=== PATIENT | male | born 1985 | race African-American/Black ===

== ENCOUNTER 2016-10-05 12:20 | Inpatient (IN) | payer SELFPAY ==
[~2016-10-05] VITALS: Ht 188 cm; Wt 76.0 kg
--- NOTE | 2016-10-05 13:46 | PHYS DOC ---
Past Medical History Past Medical History: Asthma Past Surgical History: Other Additional Past Surgical Histo: right second toe amputation Alcohol Use: None Drug Use: None Adult General Chief Complaint Chief Complaint: HAND PROBLEM HPI HPI Patient is a 31 year old male presents to the emergency department is complaining of right hand pain and discomfort. Patient states he was bit by something last Wednesday. He was seen by urgent care as well as [facility] and been placed on 2 different antibiotics. Patient states the area does not improve. He states that the hand is swollen red warm and tender. He denies fever, chills or any nausea vomiting. Patient states his tetanus immunization is up-to-date. Review of Systems Review of Systems Constitutional: Denies fever or chills [] Eyes: Denies change in visual acuity, redness, or eye pain [] HENT: Denies nasal congestion or sore throat [] Respiratory: Denies cough or shortness of breath [] Cardiovascular: No additional information not addressed in HPI [] GI: Denies abdominal pain, nausea, vomiting, bloody stools or diarrhea [] : Denies dysuria or hematuria [] Musculoskeletal: Denies back pain. Right hand pain and discomfort with swelling Integument: Denies rash or skin lesions [] Neurologic: Denies headache, focal weakness or sensory changes [] Endocrine: Denies polyuria or polydipsia [] Allergies Allergies Allergies Coded Allergies Type Severity Reaction Last Updated Verified No Known Drug Allergies 11/09/14 No Physical Exam Physical Exam Constitutional: Well developed, well nourished, no acute distress, non-toxic appearance. [] HENT: Normocephalic, atraumatic, bilateral external ears normal, oropharynx moist, no oral exudates, nose normal. [] Eyes: PERRLA, EOMI, conjunctiva normal, no discharge. [] Neck: Normal range of motion, no tenderness, supple, no stridor. [] Cardiovascular:Heart rate regular rhythm, no murmur [] Lungs & Thorax: Bilateral breath sounds clear to auscultation [] Abdomen: Bowel sounds normal, soft, no tenderness, no masses, no pulsatile masses. [] Skin: Warm, dry, no erythema, no rash. Right hand with 2 puncture hurst noted on the lateral part. Right hand appears to be very red warm and tender with drainage noted coming from the area. Back: No tenderness] Extremities: No tenderness, no cyanosis, no clubbing, ROM intact, no edema. [] Neurologic: Alert and oriented X 3, normal motor function, normal sensory function, no focal deficits noted. [] Psychologic: Affect normal, judgement normal, mood normal. [] Current Patient Data Vital Signs Vital Signs Date Time Temp Pulse Resp B/P (MAP) Pulse Ox O2 Delivery O2 Flow Rate FiO2 10/05/16 13:33 99.2 68 18 128/70 (89) 98 Room Air 99.2 EKG EKG [] Radiology/Procedures Radiology/Procedures [] Course & Med Decision Making Course & Med Decision Making Pertinent Labs and Imaging studies reviewed. (See chart for details) Spoke with Dr. Rosas in regards to patient being admitted into the hospital. He recommends having infectious disease consult to. Patient will be placed on clindamycin. X-rays pending at this time CBC CMP and blood cultures pending as well. Patient is aware of the admission. [] Dragon Disclaimer Dragon Disclaimer This electronic medical record was generated, in whole or in part, using a voice recognition dictation system. Departure Departure Impression: Primary Impression: Cellulitis of right hand Disposition: ADMITTED INPATIENT Admitting Physician: Belinda Rosas Condition: STABLE Referrals: NO PCP (PCP) JAC CONNOLLY APRN Oct 05, 2016 13:46
[2016-10-05 13:52] LABS: BASO % 0 % (0-3); EOS % 2 % (0-3); HEMATOCRIT 41.5 % (39.0-53.0); LYMPH # 1.4 x10^3/uL (1.0-4.8); LYMPH % 13 % (24-48); MEAN CORPUSCULAR HEMOGLOBIN 30 pg (25-35); MEAN CORPUSCULAR HGB CONC 34 g/dL (31-37); MEAN CORPUSCULAR VOLUME 88 fL (79-100); MONO % 7 % (0-9); NEUT % 77 % (31-73); PLATELET COUNT 237 x10^3/uL (140-400); RED BLOOD COUNT 4.69 x10^6/uL (4.30-5.70); RED CELL DISTRIBUTION WIDTH 14.2 % (11.5-14.5); WHITE BLOOD COUNT 10.2 x10^3/uL (4.0-11.0)
[2016-10-05] MEDS ORDERED: ONDANSETRON ODT 4 MG TAB.RAPDIS. PO PRN (14:00)
[2016-10-05] MEDS ORDERED: CLINDAMYCIN 600MG PREMIX 50 ML IV SCH (14:00)
[2016-10-05] MEDS ORDERED: HYDROcodone/APAP 5/325MG 1 TAB TABLET PO PRN (14:00)
[2016-10-05 14:04] LABS: CALCIUM 9.3 mg/dL (8.5-10.1); CREATININE 0.8 mg/dL (0.7-1.3); GFR 135.6
[2016-10-05 14:10] LABS: ALBUMIN/GLOBULIN RATIO 0.8 (1.0-1.7); TOTAL BILIRUBIN 0.9 mg/dL (0.2-1.0)
[2016-10-05 14:11] LABS: POTASSIUM 5.9 mmol/L (3.5-5.1)
--- NOTE | 2016-10-05 14:12 | RAD ---
Indication swelling. AP oblique and lateral views of the right hand were obtained. There is soft tissue swelling over the ulnar side of the hand as well as dorsally. A bony abnormality is not seen.
[2016-10-05 15:27] VITALS: BP 114/66
[2016-10-05 15:41] VITALS: BP 114/66
--- NOTE | 2016-10-05 18:44 | PDOC1 ---
History and Physical Date of Admission Date of Admission DATE: 10/05/16 TIME: 18:41 Identification/Chief Complaint Chief Complaint L foot ulcer (not diabetic) Problems: History of Present Illness History of Present Illness Middle aged male presented to ER with what looks like a diadetic foot ulcer, but he is not diabetic. (A1C 5.8,,Glucose today is 92) He saw Dr Coleman this am. I dw ER Doc Pt seen and examined Plan is admit with IV antibx and consult I.D. Total time 31 minutes Current Problem List Problem List Problems Medical Problems: (1) Cellulitis of right hand Status: Acute Problems: Current Medications Current Medications Current Medications Clindamycin Phosphate 50 ml @ 100 mls/hr Q8HRS IV Last administered on 14:04; Start 10/05/16 at 14:00 Acetaminophen/ Hydrocodone Bitart (Lortab 5/325) 2 tab PRN Q6HRS PRN PO pain Last administered on 10/05/16 15:47; Start 10/05/16 at 14:00 Ondansetron HCl (Zofran Odt) 4 mg PRN Q8HRS PRN PO nausea and vomiting; Start 10/05/16 at 14:00 Allergies Allergies: Coded Allergies: No Known Drug Allergies (Unverified , 11/09/14) Vitals Vitals Vital Signs Date Time Temp Pulse Resp B/P (MAP) Pulse Ox O2 Delivery O2 Flow Rate FiO2 10/05/16 15:47 Room Air 10/05/16 15:41 98.6 62 18 114/66 (82) 99 98.6 Labs Labs Laboratory Tests Test 10/05/16 13:40 White Blood Count 10.2 x10^3/uL (4.0-11.0) Red Blood Count 4.69 x10^6/uL (4.30-5.70) Hemoglobin 14.0 g/dL (13.0-17.5) Hematocrit 41.5 % (39.0-53.0) Mean Corpuscular Volume 88 fL (79-100) Mean Corpuscular Hemoglobin 30 pg (25-35) Mean Corpuscular Hemoglobin Concent 34 g/dL (31-37) Red Cell Distribution Width 14.2 % (11.5-14.5) Platelet Count 237 x10^3/uL (140-400) Neutrophils (%) (Auto) 77 % (31-73) Lymphocytes (%) (Auto) 13 % (24-48) Monocytes (%) (Auto) 7 % (0-9) Eosinophils (%) (Auto) 2 % (0-3) Basophils (%) (Auto) 0 % (0-3) Neutrophils # (Auto) 7.8 x10^3uL (1.8-7.7) Lymphocytes # (Auto) 1.4 x10^3/uL (1.0-4.8) Monocytes # (Auto) 0.7 x10^3/uL (0.0-1.1) Eosinophils # (Auto) 0.2 x10^3/uL (0.0-0.7) Basophils # (Auto) 0.0 x10^3/uL (0.0-0.2) Sodium Level 137 mmol/L (136-145) Potassium Level 5.9 mmol/L (3.5-5.1) Chloride Level 102 mmol/L (98-107) Carbon Dioxide Level 28 mmol/L (21-32) Anion Gap 7 (6-14) Blood Urea Nitrogen 9 mg/dL (8-26) Creatinine 0.8 mg/dL (0.7-1.3) Estimated GFR (Cockcroft-Gault) 135.6 BUN/Creatinine Ratio 11 (6-20) Glucose Level 76 mg/dL (70-99) Calcium Level 9.3 mg/dL (8.5-10.1) Total Bilirubin 0.9 mg/dL (0.2-1.0) Aspartate Amino Transf (AST/SGOT) 43 U/L (15-37) Alanine Aminotransferase (ALT/SGPT) 16 U/L (16-63) Alkaline Phosphatase 46 U/L (46-116) Total Protein 9.0 g/dL (6.4-8.2) Albumin 4.0 g/dL (3.4-5.0) Albumin/Globulin Ratio 0.8 (1.0-1.7) Laboratory Tests Test 10/05/16 13:40 White Blood Count 10.2 x10^3/uL (4.0-11.0) Red Blood Count 4.69 x10^6/uL (4.30-5.70) Hemoglobin 14.0 g/dL (13.0-17.5) Hematocrit 41.5 % (39.0-53.0) Mean Corpuscular Volume 88 fL (79-100) Mean Corpuscular Hemoglobin 30 pg (25-35) Mean Corpuscular Hemoglobin Concent 34 g/dL (31-37) Red Cell Distribution Width 14.2 % (11.5-14.5) Platelet Count 237 x10^3/uL (140-400) Neutrophils (%) (Auto) 77 % (31-73) Lymphocytes (%) (Auto) 13 % (24-48) Monocytes (%) (Auto) 7 % (0-9) Eosinophils (%) (Auto) 2 % (0-3) Basophils (%) (Auto) 0 % (0-3) Neutrophils # (Auto) 7.8 x10^3uL (1.8-7.7) Lymphocytes # (Auto) 1.4 x10^3/uL (1.0-4.8) Monocytes # (Auto) 0.7 x10^3/uL (0.0-1.1) Eosinophils # (Auto) 0.2 x10^3/uL (0.0-0.7) Basophils # (Auto) 0.0 x10^3/uL (0.0-0.2) Sodium Level 137 mmol/L (136-145) Potassium Level 5.9 mmol/L (3.5-5.1) Chloride Level 102 mmol/L (98-107) Carbon Dioxide Level 28 mmol/L (21-32) Anion Gap 7 (6-14) Blood Urea Nitrogen 9 mg/dL (8-26) Creatinine 0.8 mg/dL (0.7-1.3) Estimated GFR (Cockcroft-Gault) 135.6 BUN/Creatinine Ratio 11 (6-20) Glucose Level 76 mg/dL (70-99) Calcium Level 9.3 mg/dL (8.5-10.1) Total Bilirubin 0.9 mg/dL (0.2-1.0) Aspartate Amino Transf (AST/SGOT) 43 U/L (15-37) Alanine Aminotransferase (ALT/SGPT) 16 U/L (16-63) Alkaline Phosphatase 46 U/L (46-116) Total Protein 9.0 g/dL (6.4-8.2) Albumin 4.0 g/dL (3.4-5.0) Albumin/Globulin Ratio 0.8 (1.0-1.7) VTE Prophylaxis Ordered VTE Prophylaxis Devices: Yes VTE Pharmacological Prophylaxi: Yes MIN SHEN III, DO Oct 05, 2016 18:44
[2016-10-05 19:00] VITALS: BP 106/67
--- NOTE | 2016-10-05 19:03 | PDOC1 ---
History and Physical Date of Admission Date of Admission DATE: 10/05/16 TIME: 19:00 History of Present Illness History of Present Illness Middle aged AA male has a hand Infection with( ? insect bite) He has been to urgent care and then to ER with po antibx and Incision and drainage. DW Er doc. Plan is admit with ID consult and IV antibx Pt seen and examined Current Problem List Problem List Problems Medical Problems: (1) Cellulitis of right hand Status: Acute Problems: Current Medications Current Medications Current Medications Clindamycin Phosphate 50 ml @ 100 mls/hr Q8HRS IV Last administered on 14:04; Start 10/05/16 at 14:00 Acetaminophen/ Hydrocodone Bitart (Lortab 5/325) 2 tab PRN Q6HRS PRN PO pain Last administered on 10/05/16t 15:47; Start 10/05/16 at 14:00 Ondansetron HCl (Zofran Odt) 4 mg PRN Q8HRS PRN PO nausea and vomiting; Start 10/05/16 at 14:00 Allergies Allergies: Coded Allergies: No Known Drug Allergies (Unverified , 11/09/14) Vitals Vitals Vital Signs Date Time Temp Pulse Resp B/P (MAP) Pulse Ox O2 Delivery O2 Flow Rate FiO2 10/05/16 15:47 Room Air 10/05/16 15:41 98.6 62 18 114/66 (82) 99 98.6 Labs Labs Laboratory Tests Test 10/05/16 13:40 White Blood Count 10.2 x10^3/uL (4.0-11.0) Red Blood Count 4.69 x10^6/uL (4.30-5.70) Hemoglobin 14.0 g/dL (13.0-17.5) Hematocrit 41.5 % (39.0-53.0) Mean Corpuscular Volume 88 fL (79-100) Mean Corpuscular Hemoglobin 30 pg (25-35) Mean Corpuscular Hemoglobin Concent 34 g/dL (31-37) Red Cell Distribution Width 14.2 % (11.5-14.5) Platelet Count 237 x10^3/uL (140-400) Neutrophils (%) (Auto) 77 % (31-73) Lymphocytes (%) (Auto) 13 % (24-48) Monocytes (%) (Auto) 7 % (0-9) Eosinophils (%) (Auto) 2 % (0-3) Basophils (%) (Auto) 0 % (0-3) Neutrophils # (Auto) 7.8 x10^3uL (1.8-7.7) Lymphocytes # (Auto) 1.4 x10^3/uL (1.0-4.8) Monocytes # (Auto) 0.7 x10^3/uL (0.0-1.1) Eosinophils # (Auto) 0.2 x10^3/uL (0.0-0.7) Basophils # (Auto) 0.0 x10^3/uL (0.0-0.2) Sodium Level 137 mmol/L (136-145) Potassium Level 5.9 mmol/L (3.5-5.1) Chloride Level 102 mmol/L (98-107) Carbon Dioxide Level 28 mmol/L (21-32) Anion Gap 7 (6-14) Blood Urea Nitrogen 9 mg/dL (8-26) Creatinine 0.8 mg/dL (0.7-1.3) Estimated GFR (Cockcroft-Gault) 135.6 BUN/Creatinine Ratio 11 (6-20) Glucose Level 76 mg/dL (70-99) Calcium Level 9.3 mg/dL (8.5-10.1) Total Bilirubin 0.9 mg/dL (0.2-1.0) Aspartate Amino Transf (AST/SGOT) 43 U/L (15-37) Alanine Aminotransferase (ALT/SGPT) 16 U/L (16-63) Alkaline Phosphatase 46 U/L (46-116) Total Protein 9.0 g/dL (6.4-8.2) Albumin 4.0 g/dL (3.4-5.0) Albumin/Globulin Ratio 0.8 (1.0-1.7) Laboratory Tests Test 10/05/16 13:40 White Blood Count 10.2 x10^3/uL (4.0-11.0) Red Blood Count 4.69 x10^6/uL (4.30-5.70) Hemoglobin 14.0 g/dL (13.0-17.5) Hematocrit 41.5 % (39.0-53.0) Mean Corpuscular Volume 88 fL (79-100) Mean Corpuscular Hemoglobin 30 pg (25-35) Mean Corpuscular Hemoglobin Concent 34 g/dL (31-37) Red Cell Distribution Width 14.2 % (11.5-14.5) Platelet Count 237 x10^3/uL (140-400) Neutrophils (%) (Auto) 77 % (31-73) Lymphocytes (%) (Auto) 13 % (24-48) Monocytes (%) (Auto) 7 % (0-9) Eosinophils (%) (Auto) 2 % (0-3) Basophils (%) (Auto) 0 % (0-3) Neutrophils # (Auto) 7.8 x10^3uL (1.8-7.7) Lymphocytes # (Auto) 1.4 x10^3/uL (1.0-4.8) Monocytes # (Auto) 0.7 x10^3/uL (0.0-1.1) Eosinophils # (Auto) 0.2 x10^3/uL (0.0-0.7) Basophils # (Auto) 0.0 x10^3/uL (0.0-0.2) Sodium Level 137 mmol/L (136-145) Potassium Level 5.9 mmol/L (3.5-5.1) Chloride Level 102 mmol/L (98-107) Carbon Dioxide Level 28 mmol/L (21-32) Anion Gap 7 (6-14) Blood Urea Nitrogen 9 mg/dL (8-26) Creatinine 0.8 mg/dL (0.7-1.3) Estimated GFR (Cockcroft-Gault) 135.6 BUN/Creatinine Ratio 11 (6-20) Glucose Level 76 mg/dL (70-99) Calcium Level 9.3 mg/dL (8.5-10.1) Total Bilirubin 0.9 mg/dL (0.2-1.0) Aspartate Amino Transf (AST/SGOT) 43 U/L (15-37) Alanine Aminotransferase (ALT/SGPT) 16 U/L (16-63) Alkaline Phosphatase 46 U/L (46-116) Total Protein 9.0 g/dL (6.4-8.2) Albumin 4.0 g/dL (3.4-5.0) Albumin/Globulin Ratio 0.8 (1.0-1.7) VTE Prophylaxis Ordered VTE Prophylaxis Devices: Yes VTE Pharmacological Prophylaxi: Yes MIN SHEN III, DO Oct 05, 2016 19:03
[2016-10-05] MEDS ORDERED: VANCOMYCIN 1 GM in IV NORMAL SALINE 250ML 250 ML IV SCH (21:00)
[2016-10-05] MEDS: VANCOMYCIN PER PHARMACY MC PRN ×2 (21:19→22:11)
[2016-10-05] MEDS ORDERED: VANCOMYCIN 2 GM in IV NORMAL SALINE 500ML BAG 500 ML IV ONE (22:00)
[2016-10-05 22:45] VITALS: BP 114/67
[2016-10-06] MEDS: PIPERACILLIN/TAZOBACTAM 3.375 GM in IV NORMAL SALINE 50ML 50 ML IV SCH ×4 (00:15→18:06)
--- NOTE | 2016-10-06 01:32 | ACF ---
Admission Forms Criteria CELLULITIS Clinical Indications for Admission to Inpatient Care (Place 'X' for any and all applicable criteria): Admission is indicated for ANY ONE of the following(1)(2)(3)(4)(5): [ ]I. Limb-threatening infection [ ]II. High-risk comorbid condition as indicated by ANY ONE of the following: [ ]a) Uncontrolled diabetes (eg, HbA1c greater than 10% (0.1)) [ ]b) Cirrhosis [ ]c) Neutropenia [ ]d) Asplenia [ ]e) Immunosuppression [ ]f) Symptomatic heart failure [ ]III. Failure of outpatient therapy as indicated by ALL of the following: [ ]a) Progression or no improvement after adequate trial (minimum of 48 hours, with longer period for stable lower extremity infection) [ ]b) Adequate antibiotic regimen as indicated by use of ANY ONE of the following: [ ]i) First-generation cephalosporin (e.g., cephalexin) [ ]ii) Antistaphylococcal penicillin (e.g., dicloxacillin) [ ]iii) Penicillin-allergic patient regimen (clindamycin, extended-spectrum fluoroquinolone, or doxycycline) [ ]iv) Resistant organism (eg, methicillin-resistant Staphylococcus aureus) regimen (6) [ ]c) Outpatient intravenous therapy regimen is not appropriate due to ANY ONE of the following. (7)(8)(9)(10): [ ]i) It was tried and was not successful (eg, progression of infection). [ ]ii) It is not available or cannot be arranged in a clinically appropriate time frame (e.g., the next day). [ ]iii) Clinical presentation (eg, acuity of infection, rapidity of progression, confirmed or suspected bacteremia) is judged to require ALL of the following: [ ]1) Immediate initiation of intravenous therapy ( eg, cannot wait for next day) [ ]2) Intensity of patient monitoring and observation (eg, vital sign measurement, checks for infection progression) that cannot be provided at other than inpatient level of care [ ]IV. Mental status changes [ ]V. Bacteremia [ ]. Hemodynamic instability [ ]VII. Suspected necrotizing soft tissue infection (e.g., gas in tissue)(11)( 12) [ ]VIII. Orbital infection (13)(14) [ ]IX. Associated surgical procedure (e.g., abscess drainage, debridement) not amenable to outpatient, emergency department, or observation care [ ]X. Cutaneous gangrene [ ]XI. High fever (temperature greater than 39.5 degrees C (103.1 degrees F) (oral)) not responsive to outpatient, emergency department, or observation care therapy [X]XIII. Inpatient admission required rather than observation care (Also use Cellulitis: Observation Care as appropriate) because of ANY ONE of the following : [ ]a) Periorbital or perineal infection that is severe or worsening [ ]b) Severe pain requiring acute inpatient management [ ]c) IV fluid to replace significant ongoing (e.g., for over 24 hours) losses (greater than 3L/m2 per day) [ ]d) Compartment syndrome monitoring (17) [ ]e) Strict or protective (eg, laminar flow) isolation [ ]f) Urgent debridement or skin grafting [ ]g) Bone or joint debridement [ ]h) Immediate inpatient surgery [X]i) Other condition, treatment or monitoring requiring inpatient admission Extended stay beyond goal length of stay may be needed for (1)(18): [ ]a) Necrotizing soft tissue infection or fasciitis [ ]b) Gram-negative infection [ ]c) Methicillin-resistant Staphylococcal aureus (MRSA) infection [ ]d) Peripheral venous insufficiency with cellulitis [ ]e) Extensive edema [ ]f) Sepsis or continued Hemodynamic instability [ ]g) Continued high fever or mental status change [ ]h) Bacteremia [ ]i) Active serious comorbid conditions ( eg, heart failure, renal insufficiency) The original [facility] content created by [employer] has been revised. The portions of the content which have been revised are identified through the use of italic text or in bold, and [facility] has neither reviewed nor approved the modified material. All other unmodified content is copyright [facility] Please see references footnoted in the original [facility] edition 2016 Admission Criteria Met?: Yes ABDULLAHI CRAWLEY Oct 06, 2016 01:32
[2016-10-06 03:00] VITALS: BP 117/73
[2016-10-06 05:06] LABS: BASO % 0 % (0-3); EOS % 6 % (0-3); HEMATOCRIT 40.6 % (39.0-53.0); HEMOGLOBIN 13.2 g/dL (13.0-17.5); LYMPH # 1.4 x10^3/uL (1.0-4.8); LYMPH % 27 % (24-48); MEAN CORPUSCULAR HEMOGLOBIN 29 pg (25-35); MEAN CORPUSCULAR HGB CONC 33 g/dL (31-37); MEAN CORPUSCULAR VOLUME 89 fL (79-100); MONO % 9 % (0-9); NEUT % 58 % (31-73); PLATELET COUNT 178 x10^3/uL (140-400); RED BLOOD COUNT 4.55 x10^6/uL (4.30-5.70); WHITE BLOOD COUNT 5.4 x10^3/uL (4.0-11.0)
[2016-10-06] MEDS: VANCOMYCIN 1.25 GM in IV NORMAL SALINE 250ML 250 ML IV SCH ×3 (05:25→22:50)
[2016-10-06 05:27] LABS: CALCIUM 8.5 mg/dL (8.5-10.1); CREATININE 0.9 mg/dL (0.7-1.3); GFR 118.3; POTASSIUM 3.9 mmol/L (3.5-5.1)
[2016-10-06 07:00] VITALS: BP 116/74
[2016-10-06] MEDS: HYDROcodone/APAP 5/325MG 1 TAB TABLET PO PRN ×2 (08:16→18:06)
--- NOTE | 2016-10-06 10:33 | PDOC2 ---
IM Consult Referring physician Dr Rosas, for hand infection Date of Admission DATE: 10/06/16 TIME: 10:29 Chief Complaint Chief Complaint This year old male has been admitted with a chief complaint of .rt wrist pain and swelling and drainage. Started few days ago, seen at ER and also at some walking clinic without improvement ,now here Problems: Past Medical History Pulmonary: Asthma Dermatology: Eczema Past Social History PSH smoking +, no etoh or drugs Review of Symptoms Review of Symptoms General ROS: positive for - Psychological ROS: negative Ophthalmic ROS: negative ENT ROS: negative Allergy and Immunology ROS: negative Hematology and Lymphatic: negative Endocrine ROS: negative Respiratory ROS: no cold, cough, dyspnea. Cardiovascular ROS: no chest pain or dyspnea on exertion Gastrointestinal ROS: no abdominal pain, change in bowel habits, or black or bloody stools Genito-Urinary ROS: no dysuria, trouble voiding, or hematuria Musculoskeletal ROS: no pain Neurological ROS: negative Dermatological ROS: no rash Medications Current Medications Acetaminophen/ Hydrocodone Bitart (Lortab 5/325) 1 tab PRN Q4HRS PRN PO PAIN Last administered on 10/06/16 08:16; Start 10/05/16 at 21:00 Acetaminophen/ Hydrocodone Bitart (Lortab 5/325) 2 tab PRN Q6HRS PRN PO pain Last administered on 10/05/16 15:47; Start 10/05/16 at 14:00; Stop 10/05/16 at 21:01; Status DC Clindamycin Phosphate 50 ml @ 100 mls/hr Q8HRS IV Last administered on 14:04; Start 10/05/16 at 14:00; Stop 10/05/16 at 20:58; Status DC Ondansetron HCl (Zofran Odt) 4 mg PRN Q8HRS PRN PO nausea and vomiting; Start 10/05/16 at 14:00 Piperacillin Sod/ Tazobactam Sod 3.375 gm/Sodium Chloride 50 ml @ 100 mls/hr Q6HRS IV Last administered on 10/06/16 05:23; Start 10/06/16 at 00:00 Vancomycin HCl 1 each 1X ONCE MC ; Start 10/06/16 at 21:30; Stop 10/06/16 at 21 :31 Vancomycin HCl (Vanco Per Pharmacy) 1 each PRN DAILY PRN MC SEE COMMENTS Last administered on 10/05/16 22:11; Start 10/05/16 at 21:15 Vancomycin HCl 1.25 gm/Sodium Chloride 250 ml @ 167 mls/hr Q8H IV Last administered on 10/06/16 05:25; Start 10/06/16 at 06:00 Vancomycin HCl 1 gm/Sodium Chloride 250 ml @ 250 mls/hr Q12H IV ; Start at 21:00; Stop 10/05/16 at 21:03; Status DC Vancomycin HCl 2 gm/Sodium Chloride 500 ml @ 250 mls/hr 1X ONCE IV Last administered on 10/05/16 22:06; Start 10/05/16 at 22:00; Stop 10/05/16 at 23:59 ; Status DC Allergy Allergies Coded Allergies Type Severity Reaction Last Updated Verified No Known Drug Allergies 11/09/14 No Physical Exam Physical Exam General appearance - alert,well appearing, and in no distress and oriented to person, place, and time Mental Status - alert, oriented to person, place, and time, affect appropriate to mood Head - normal Chest - clear to auscultation, no wheezes, rales or rhonchi, symmetric air entry Heart - S1 and S2 normal Abdomen - soft, nontender, nondistended, no masses or organomegaly Neurological - alert and oriented Musculoskeletal - no muscular tenderness noted,,rt wrist with swelling, purulent discharge and deep wound Extremities - no pedal edema Skin - warm and dry Labs Laboratory Tests Test 10/05/16 13:40 10/06/16 02:55 White Blood Count 10.2 x10^3/uL (4.0-11.0) 5.4 x10^3/uL (4.0-11.0) Red Blood Count 4.69 x10^6/uL (4.30-5.70) 4.55 x10^6/uL (4.30-5.70) Hemoglobin 14.0 g/dL (13.0-17.5) 13.2 g/dL (13.0-17.5) Hematocrit 41.5 % (39.0-53.0) 40.6 % (39.0-53.0) Mean Corpuscular Volume 88 fL (79-100) 89 fL (79-100) Mean Corpuscular Hemoglobin 30 pg (25-35) 29 pg (25-35) Mean Corpuscular Hemoglobin Concent 34 g/dL (31-37) 33 g/dL (31-37) Red Cell Distribution Width 14.2 % (11.5-14.5) 14.0 % (11.5-14.5) Platelet Count 237 x10^3/uL (140-400) 178 x10^3/uL (140-400) Neutrophils (%) (Auto) 77 % (31-73) 58 % (31-73) Lymphocytes (%) (Auto) 13 % (24-48) 27 % (24-48) Monocytes (%) (Auto) 7 % (0-9) 9 % (0-9) Eosinophils (%) (Auto) 2 % (0-3) 6 % (0-3) Basophils (%) (Auto) 0 % (0-3) 0 % (0-3) Neutrophils # (Auto) 7.8 x10^3uL (1.8-7.7) 3.1 x10^3uL (1.8-7.7) Lymphocytes # (Auto) 1.4 x10^3/uL (1.0-4.8) 1.4 x10^3/uL (1.0-4.8) Monocytes # (Auto) 0.7 x10^3/uL (0.0-1.1) 0.5 x10^3/uL (0.0-1.1) Eosinophils # (Auto) 0.2 x10^3/uL (0.0-0.7) 0.3 x10^3/uL (0.0-0.7) Basophils # (Auto) 0.0 x10^3/uL (0.0-0.2) 0.0 x10^3/uL (0.0-0.2) Sodium Level 137 mmol/L (136-145) 140 mmol/L (136-145) Potassium Level 5.9 mmol/L (3.5-5.1) 3.9 mmol/L (3.5-5.1) Chloride Level 102 mmol/L (98-107) 105 mmol/L (98-107) Carbon Dioxide Level 28 mmol/L (21-32) 25 mmol/L (21-32) Anion Gap 7 (6-14) 10 (6-14) Blood Urea Nitrogen 9 mg/dL (8-26) 11 mg/dL (8-26) Creatinine 0.8 mg/dL (0.7-1.3) 0.9 mg/dL (0.7-1.3) Estimated GFR (Cockcroft-Gault) 135.6 118.3 BUN/Creatinine Ratio 11 (6-20) Glucose Level 76 mg/dL (70-99) 79 mg/dL (70-99) Calcium Level 9.3 mg/dL (8.5-10.1) 8.5 mg/dL (8.5-10.1) Total Bilirubin 0.9 mg/dL (0.2-1.0) Aspartate Amino Transf (AST/SGOT) 43 U/L (15-37) Alanine Aminotransferase (ALT/SGPT) 16 U/L (16-63) Alkaline Phosphatase 46 U/L (46-116) Total Protein 9.0 g/dL (6.4-8.2) Albumin 4.0 g/dL (3.4-5.0) Albumin/Globulin Ratio 0.8 (1.0-1.7) Laboratory Tests Test 10/05/16 13:40 10/06/16 02:55 White Blood Count 10.2 x10^3/uL (4.0-11.0) 5.4 x10^3/uL (4.0-11.0) Red Blood Count 4.69 x10^6/uL (4.30-5.70) 4.55 x10^6/uL (4.30-5.70) Hemoglobin 14.0 g/dL (13.0-17.5) 13.2 g/dL (13.0-17.5) Hematocrit 41.5 % (39.0-53.0) 40.6 % (39.0-53.0) Mean Corpuscular Volume 88 fL (79-100) 89 fL (79-100) Mean Corpuscular Hemoglobin 30 pg (25-35) 29 pg (25-35) Mean Corpuscular Hemoglobin Concent 34 g/dL (31-37) 33 g/dL (31-37) Red Cell Distribution Width 14.2 % (11.5-14.5) 14.0 % (11.5-14.5) Platelet Count 237 x10^3/uL (140-400) 178 x10^3/uL (140-400) Neutrophils (%) (Auto) 77 % (31-73) 58 % (31-73) Lymphocytes (%) (Auto) 13 % (24-48) 27 % (24-48) Monocytes (%) (Auto) 7 % (0-9) 9 % (0-9) Eosinophils (%) (Auto) 2 % (0-3) 6 % (0-3) Basophils (%) (Auto) 0 % (0-3) 0 % (0-3) Neutrophils # (Auto) 7.8 x10^3uL (1.8-7.7) 3.1 x10^3uL (1.8-7.7) Lymphocytes # (Auto) 1.4 x10^3/uL (1.0-4.8) 1.4 x10^3/uL (1.0-4.8) Monocytes # (Auto) 0.7 x10^3/uL (0.0-1.1) 0.5 x10^3/uL (0.0-1.1) Eosinophils # (Auto) 0.2 x10^3/uL (0.0-0.7) 0.3 x10^3/uL (0.0-0.7) Basophils # (Auto) 0.0 x10^3/uL (0.0-0.2) 0.0 x10^3/uL (0.0-0.2) Sodium Level 137 mmol/L (136-145) 140 mmol/L (136-145) Potassium Level 5.9 mmol/L (3.5-5.1) 3.9 mmol/L (3.5-5.1) Chloride Level 102 mmol/L (98-107) 105 mmol/L (98-107) Carbon Dioxide Level 28 mmol/L (21-32) 25 mmol/L (21-32) Anion Gap 7 (6-14) 10 (6-14) Blood Urea Nitrogen 9 mg/dL (8-26) 11 mg/dL (8-26) Creatinine 0.8 mg/dL (0.7-1.3) 0.9 mg/dL (0.7-1.3) Estimated GFR (Cockcroft-Gault) 135.6 118.3 BUN/Creatinine Ratio 11 (6-20) Glucose Level 76 mg/dL (70-99) 79 mg/dL (70-99) Calcium Level 9.3 mg/dL (8.5-10.1) 8.5 mg/dL (8.5-10.1) Total Bilirubin 0.9 mg/dL (0.2-1.0) Aspartate Amino Transf (AST/SGOT) 43 U/L (15-37) Alanine Aminotransferase (ALT/SGPT) 16 U/L (16-63) Alkaline Phosphatase 46 U/L (46-116) Total Protein 9.0 g/dL (6.4-8.2) Albumin 4.0 g/dL (3.4-5.0) Albumin/Globulin Ratio 0.8 (1.0-1.7) Vitals Vital Signs Date Time Temp Pulse Resp B/P (MAP) Pulse Ox O2 Delivery O2 Flow Rate FiO2 10/06/16 08:16 Room Air 10/06/16 07:00 99.0 62 16 116/74 (88) 98 99.0 Assessment Assessment Rt wrist infection Plan Plan cont vanc and zosyn check culture and adjust BAILEY VEGA MD Oct 06, 2016 10:33
[2016-10-06 11:00] VITALS: BP 109/71
--- NOTE | 2016-10-06 11:41 | PDOC ---
PROGRESS NOTES Chief Complaint Chief Complaint 1. Cellulitis of R hand 2. s/p I&D: at ER with po abx 3. GPC+ on R hand wound culture 4. Hyperkalemia 5. Elevated AST History of Present Illness History of Present Illness pt is resting comfortably in bed, he is doing much better today and he says the swelling has significantly decreased, he denies any fevers or chills Vitals Vitals Vital Signs Date Time Temp Pulse Resp B/P (MAP) Pulse Ox O2 Delivery O2 Flow Rate FiO2 10/06/16 11:00 98.7 61 18 109/71 (84) 100 Room Air 98.7 Physical Exam General: Alert, Oriented X3, Cooperative, No acute distress Heart: Regular rate, No murmurs Lungs: Clear Abdomen: Normal bowel sounds, Soft, No tenderness Extremities: No clubbing, No cyanosis, No edema Skin: No rashes, No breakdown, No significant lesion Labs LABS Laboratory Tests Test 10/05/16 13:40 10/06/16 02:55 White Blood Count 10.2 x10^3/uL (4.0-11.0) 5.4 x10^3/uL (4.0-11.0) Red Blood Count 4.69 x10^6/uL (4.30-5.70) 4.55 x10^6/uL (4.30-5.70) Hemoglobin 14.0 g/dL (13.0-17.5) 13.2 g/dL (13.0-17.5) Hematocrit 41.5 % (39.0-53.0) 40.6 % (39.0-53.0) Mean Corpuscular Volume 88 fL (79-100) 89 fL (79-100) Mean Corpuscular Hemoglobin 30 pg (25-35) 29 pg (25-35) Mean Corpuscular Hemoglobin Concent 34 g/dL (31-37) 33 g/dL (31-37) Red Cell Distribution Width 14.2 % (11.5-14.5) 14.0 % (11.5-14.5) Platelet Count 237 x10^3/uL (140-400) 178 x10^3/uL (140-400) Neutrophils (%) (Auto) 77 % (31-73) 58 % (31-73) Lymphocytes (%) (Auto) 13 % (24-48) 27 % (24-48) Monocytes (%) (Auto) 7 % (0-9) 9 % (0-9) Eosinophils (%) (Auto) 2 % (0-3) 6 % (0-3) Basophils (%) (Auto) 0 % (0-3) 0 % (0-3) Neutrophils # (Auto) 7.8 x10^3uL (1.8-7.7) 3.1 x10^3uL (1.8-7.7) Lymphocytes # (Auto) 1.4 x10^3/uL (1.0-4.8) 1.4 x10^3/uL (1.0-4.8) Monocytes # (Auto) 0.7 x10^3/uL (0.0-1.1) 0.5 x10^3/uL (0.0-1.1) Eosinophils # (Auto) 0.2 x10^3/uL (0.0-0.7) 0.3 x10^3/uL (0.0-0.7) Basophils # (Auto) 0.0 x10^3/uL (0.0-0.2) 0.0 x10^3/uL (0.0-0.2) Sodium Level 137 mmol/L (136-145) 140 mmol/L (136-145) Potassium Level 5.9 mmol/L (3.5-5.1) 3.9 mmol/L (3.5-5.1) Chloride Level 102 mmol/L (98-107) 105 mmol/L (98-107) Carbon Dioxide Level 28 mmol/L (21-32) 25 mmol/L (21-32) Anion Gap 7 (6-14) 10 (6-14) Blood Urea Nitrogen 9 mg/dL (8-26) 11 mg/dL (8-26) Creatinine 0.8 mg/dL (0.7-1.3) 0.9 mg/dL (0.7-1.3) Estimated GFR (Cockcroft-Gault) 135.6 118.3 BUN/Creatinine Ratio 11 (6-20) Glucose Level 76 mg/dL (70-99) 79 mg/dL (70-99) Calcium Level 9.3 mg/dL (8.5-10.1) 8.5 mg/dL (8.5-10.1) Total Bilirubin 0.9 mg/dL (0.2-1.0) Aspartate Amino Transf (AST/SGOT) 43 U/L (15-37) Alanine Aminotransferase (ALT/SGPT) 16 U/L (16-63) Alkaline Phosphatase 46 U/L (46-116) Total Protein 9.0 g/dL (6.4-8.2) Albumin 4.0 g/dL (3.4-5.0) Albumin/Globulin Ratio 0.8 (1.0-1.7) Review of Systems Review of Systems denies N/V/D and NICOLE Assessment and Plan Assessmemt and Plan Assessment 1. Cellulitis of R hand 2. s/p I&D: at ER with po abx 3. GPC+ on R hand wound culture 4. Hyperkalemia 5. Elevated AST Plan 1. Continue vancomycin and zosyn 2. Wound culture showed GPC 3. Pain control with lortab prn 4. Monitor vitals for fevers 5. PT/OT 6. Discussed plan of care with nursing 7. Continue home meds 8. Appreciate ID subspecialty input 9. Zofran prn for nausea 10. R hand XR showed soft tissue swelling in dorsal and ulnar regions with no bony abnormalities Problems: Comment Review of Relevant I have reviewed the following items nahomi (where applicable) has been applied. Labs Laboratory Tests Test 10/05/16 13:40 10/06/16 02:55 White Blood Count 10.2 x10^3/uL (4.0-11.0) 5.4 x10^3/uL (4.0-11.0) Red Blood Count 4.69 x10^6/uL (4.30-5.70) 4.55 x10^6/uL (4.30-5.70) Hemoglobin 14.0 g/dL (13.0-17.5) 13.2 g/dL (13.0-17.5) Hematocrit 41.5 % (39.0-53.0) 40.6 % (39.0-53.0) Mean Corpuscular Volume 88 fL (79-100) 89 fL (79-100) Mean Corpuscular Hemoglobin 30 pg (25-35) 29 pg (25-35) Mean Corpuscular Hemoglobin Concent 34 g/dL (31-37) 33 g/dL (31-37) Red Cell Distribution Width 14.2 % (11.5-14.5) 14.0 % (11.5-14.5) Platelet Count 237 x10^3/uL (140-400) 178 x10^3/uL (140-400) Neutrophils (%) (Auto) 77 % (31-73) 58 % (31-73) Lymphocytes (%) (Auto) 13 % (24-48) 27 % (24-48) Monocytes (%) (Auto) 7 % (0-9) 9 % (0-9) Eosinophils (%) (Auto) 2 % (0-3) 6 % (0-3) Basophils (%) (Auto) 0 % (0-3) 0 % (0-3) Neutrophils # (Auto) 7.8 x10^3uL (1.8-7.7) 3.1 x10^3uL (1.8-7.7) Lymphocytes # (Auto) 1.4 x10^3/uL (1.0-4.8) 1.4 x10^3/uL (1.0-4.8) Monocytes # (Auto) 0.7 x10^3/uL (0.0-1.1) 0.5 x10^3/uL (0.0-1.1) Eosinophils # (Auto) 0.2 x10^3/uL (0.0-0.7) 0.3 x10^3/uL (0.0-0.7) Basophils # (Auto) 0.0 x10^3/uL (0.0-0.2) 0.0 x10^3/uL (0.0-0.2) Sodium Level 137 mmol/L (136-145) 140 mmol/L (136-145) Potassium Level 5.9 mmol/L (3.5-5.1) 3.9 mmol/L (3.5-5.1) Chloride Level 102 mmol/L (98-107) 105 mmol/L (98-107) Carbon Dioxide Level 28 mmol/L (21-32) 25 mmol/L (21-32) Anion Gap 7 (6-14) 10 (6-14) Blood Urea Nitrogen 9 mg/dL (8-26) 11 mg/dL (8-26) Creatinine 0.8 mg/dL (0.7-1.3) 0.9 mg/dL (0.7-1.3) Estimated GFR (Cockcroft-Gault) 135.6 118.3 BUN/Creatinine Ratio 11 (6-20) Glucose Level 76 mg/dL (70-99) 79 mg/dL (70-99) Calcium Level 9.3 mg/dL (8.5-10.1) 8.5 mg/dL (8.5-10.1) Total Bilirubin 0.9 mg/dL (0.2-1.0) Aspartate Amino Transf (AST/SGOT) 43 U/L (15-37) Alanine Aminotransferase (ALT/SGPT) 16 U/L (16-63) Alkaline Phosphatase 46 U/L (46-116) Total Protein 9.0 g/dL (6.4-8.2) Albumin 4.0 g/dL (3.4-5.0) Albumin/Globulin Ratio 0.8 (1.0-1.7) Laboratory Tests Test 10/05/16 13:40 10/06/16 02:55 White Blood Count 10.2 x10^3/uL (4.0-11.0) 5.4 x10^3/uL (4.0-11.0) Red Blood Count 4.69 x10^6/uL (4.30-5.70) 4.55 x10^6/uL (4.30-5.70) Hemoglobin 14.0 g/dL (13.0-17.5) 13.2 g/dL (13.0-17.5) Hematocrit 41.5 % (39.0-53.0) 40.6 % (39.0-53.0) Mean Corpuscular Volume 88 fL (79-100) 89 fL (79-100) Mean Corpuscular Hemoglobin 30 pg (25-35) 29 pg (25-35) Mean Corpuscular Hemoglobin Concent 34 g/dL (31-37) 33 g/dL (31-37) Red Cell Distribution Width 14.2 % (11.5-14.5) 14.0 % (11.5-14.5) Platelet Count 237 x10^3/uL (140-400) 178 x10^3/uL (140-400) Neutrophils (%) (Auto) 77 % (31-73) 58 % (31-73) Lymphocytes (%) (Auto) 13 % (24-48) 27 % (24-48) Monocytes (%) (Auto) 7 % (0-9) 9 % (0-9) Eosinophils (%) (Auto) 2 % (0-3) 6 % (0-3) Basophils (%) (Auto) 0 % (0-3) 0 % (0-3) Neutrophils # (Auto) 7.8 x10^3uL (1.8-7.7) 3.1 x10^3uL (1.8-7.7) Lymphocytes # (Auto) 1.4 x10^3/uL (1.0-4.8) 1.4 x10^3/uL (1.0-4.8) Monocytes # (Auto) 0.7 x10^3/uL (0.0-1.1) 0.5 x10^3/uL (0.0-1.1) Eosinophils # (Auto) 0.2 x10^3/uL (0.0-0.7) 0.3 x10^3/uL (0.0-0.7) Basophils # (Auto) 0.0 x10^3/uL (0.0-0.2) 0.0 x10^3/uL (0.0-0.2) Sodium Level 137 mmol/L (136-145) 140 mmol/L (136-145) Potassium Level 5.9 mmol/L (3.5-5.1) 3.9 mmol/L (3.5-5.1) Chloride Level 102 mmol/L (98-107) 105 mmol/L (98-107) Carbon Dioxide Level 28 mmol/L (21-32) 25 mmol/L (21-32) Anion Gap 7 (6-14) 10 (6-14) Blood Urea Nitrogen 9 mg/dL (8-26) 11 mg/dL (8-26) Creatinine 0.8 mg/dL (0.7-1.3) 0.9 mg/dL (0.7-1.3) Estimated GFR (Cockcroft-Gault) 135.6 118.3 BUN/Creatinine Ratio 11 (6-20) Glucose Level 76 mg/dL (70-99) 79 mg/dL (70-99) Calcium Level 9.3 mg/dL (8.5-10.1) 8.5 mg/dL (8.5-10.1) Total Bilirubin 0.9 mg/dL (0.2-1.0) Aspartate Amino Transf (AST/SGOT) 43 U/L (15-37) Alanine Aminotransferase (ALT/SGPT) 16 U/L (16-63) Alkaline Phosphatase 46 U/L (46-116) Total Protein 9.0 g/dL (6.4-8.2) Albumin 4.0 g/dL (3.4-5.0) Albumin/Globulin Ratio 0.8 (1.0-1.7) Microbiology 10/05/16 Gram Stain - Final, Complete Medications Current Medications Clindamycin Phosphate 50 ml @ 100 mls/hr Q8HRS IV Last administered on 14:04; Start 10/05/16 at 14:00; Stop 10/05/16 at 20:58; Status DC Acetaminophen/ Hydrocodone Bitart (Lortab 5/325) 2 tab PRN Q6HRS PRN PO pain Last administered on 10/05/16 15:47; Start 10/05/16 at 14:00; Stop 10/05/16 at 21:01; Status DC Ondansetron HCl (Zofran Odt) 4 mg PRN Q8HRS PRN PO nausea and vomiting; Start 10/05/16 at 14:00 Piperacillin Sod/ Tazobactam Sod 3.375 gm/Sodium Chloride 50 ml @ 100 mls/hr Q6HRS IV Last administered on 10/06/16 05:23; Start 10/06/16 at 00:00 Vancomycin HCl 1 gm/Sodium Chloride 250 ml @ 250 mls/hr Q12H IV ; Start at 21:00; Stop 10/05/16 at 21:03; Status DC Acetaminophen/ Hydrocodone Bitart (Lortab 5/325) 1 tab PRN Q4HRS PRN PO PAIN Last administered on 10/06/16 08:16; Start 10/05/16 at 21:00 Vancomycin HCl 2 gm/Sodium Chloride 500 ml @ 250 mls/hr 1X ONCE IV Last administered on 10/05/16 22:06; Start 10/05/16 at 22:00; Stop 10/05/16 at 23:59 ; Status DC Vancomycin HCl (Vanco Per Pharmacy) 1 each PRN DAILY PRN MC SEE COMMENTS Last administered on 10/05/16 22:11; Start 10/05/16 at 21:15 Vancomycin HCl 1.25 gm/Sodium Chloride 250 ml @ 167 mls/hr Q8H IV Last administered on 10/06/16 05:25; Start 10/06/16 at 06:00 Vancomycin HCl 1 each 1X ONCE MC ; Start 10/06/16 at 21:30; Stop 10/06/16 at 21 :31 Vitals/I & O Vital Sign - Last 24 Hours 10/05/16 10/05/16 10/05/16 10/05/16 13:33 13:45 15:27 15:30 Temp 99.2 98.6 99.2 98.6 Pulse 68 74 62 Resp 18 16 18 B/P (MAP) 128/70 (89) 122/70 (87) 114/66 (82) Pulse Ox 98 100 99 O2 Delivery Room Air Room Air Room Air Room Air 10/05/16 10/05/16 10/05/16 10/05/16 15:41 15:47 19:00 20:00 Temp 98.6 98.4 98.6 98.4 Pulse 62 67 Resp 18 16 B/P (MAP) 114/66 (82) 106/67 (80) Pulse Ox 99 96 O2 Delivery Room Air Room Air Room Air Room Air 10/05/16 10/06/16 10/06/16 10/06/16 22:45 03:00 07:00 07:25 Temp 98.1 98.1 99.0 98.1 98.1 99.0 Pulse 59 69 62 Resp 16 16 16 B/P (MAP) 114/67 (83) 117/73 (88) 116/74 (88) Pulse Ox 99 99 98 O2 Delivery Room Air Room Air Room Air Room Air 10/06/16 10/06/16 08:16 11:00 Temp 98.7 98.7 Pulse 61 Resp 18 B/P (MAP) 109/71 (84) Pulse Ox 100 O2 Delivery Room Air Room Air Intake and Output 10/05/16 10/05/16 10/06/16 14:59 22:59 06:59 Intake Total 700 ml 650 ml Balance 700 ml 650 ml MIN SHEN III DO Oct 06, 2016 11:41
[2016-10-06] MEDS: VANCOMYCIN PER PHARMACY MC PRN ×2 (12:37→23:23)
[2016-10-06 15:02] VITALS: BP 120/72
[2016-10-06 19:05] VITALS: BP 125/76
[2016-10-06 23:18] VITALS: BP 126/70
[2016-10-07] MEDS: PIPERACILLIN/TAZOBACTAM 3.375 GM in IV NORMAL SALINE 50ML 50 ML IV SCH ×3 (00:46→13:06)
[2016-10-07 03:29] VITALS: BP 12/77
[2016-10-07 06:25] LABS: BASO # 0.1 x10^3/uL (0.0-0.2); BASO % 2 % (0-3); EOS % 9 % (0-3); HEMATOCRIT 40.5 % (39.0-53.0); HEMOGLOBIN 13.6 g/dL (13.0-17.5); LYMPH % 29 % (24-48); MEAN CORPUSCULAR HEMOGLOBIN 29 pg (25-35); MEAN CORPUSCULAR HGB CONC 34 g/dL (31-37); MEAN CORPUSCULAR VOLUME 87 fL (79-100); MONO % 16 % (0-9); NEUT % 45 % (31-73); PLATELET COUNT 199 x10^3/uL (140-400); RED BLOOD COUNT 4.66 x10^6/uL (4.30-5.70); RED CELL DISTRIBUTION WIDTH 13.7 % (11.5-14.5); WHITE BLOOD COUNT 3.6 x10^3/uL (4.0-11.0)
[2016-10-07 06:38] LABS: CALCIUM 8.9 mg/dL (8.5-10.1); CREATININE 0.9 mg/dL (0.7-1.3); GFR 118.3; POTASSIUM 3.8 mmol/L (3.5-5.1)
[2016-10-07] MEDS: VANCOMYCIN 1.25 GM in IV NORMAL SALINE 250ML 250 ML IV SCH (06:47)
[2016-10-07 07:00] VITALS: BP 115/67
[2016-10-07 11:00] VITALS: BP 127/73
[2016-10-07] MEDS: VANCOMYCIN PER PHARMACY MC PRN (13:40)
--- NOTE | 2016-10-07 13:52 | PDOC ---
PROGRESS NOTES Chief Complaint Chief Complaint 1. Cellulitis of R hand 2. s/p I&D: at [facility] ER with bactrium 3. GPC+ on stain on R hand wound culture 4. Hyperkalemia 5. Elevated AST plan: fu with id on vanco and zosyn fu cx sensitivity pain control cont local wound care with packing History of Present Illness History of Present Illness pt is resting comfortably in bed, he is doing much better today and he says the swelling has significantly decreased, he denies any fevers or chills Vitals Vitals Vital Signs Date Time Temp Pulse Resp B/P (MAP) Pulse Ox O2 Delivery O2 Flow Rate FiO2 10/07/16 11:00 99.4 63 18 127/73 (91) 99 Room Air 99.4 Physical Exam Physical Exam right wrist lateral aspect has dressing packing and some blood ozzing on the dressing General: Alert, Oriented X3, Cooperative, No acute distress Heart: Regular rate, No murmurs Lungs: Clear Abdomen: Normal bowel sounds, Soft, No tenderness Extremities: No clubbing, No cyanosis, No edema Skin: No rashes, No breakdown, No significant lesion Labs LABS Laboratory Tests Test 10/06/16 21:35 10/07/16 05:40 Vancomycin Level Trough 16.6 mcg/mL (10.0-20.0) Vancomycin Last Dose Date Vancomycin Last Dose Time White Blood Count 3.6 x10^3/uL (4.0-11.0) Red Blood Count 4.66 x10^6/uL (4.30-5.70) Hemoglobin 13.6 g/dL (13.0-17.5) Hematocrit 40.5 % (39.0-53.0) Mean Corpuscular Volume 87 fL (79-100) Mean Corpuscular Hemoglobin 29 pg (25-35) Mean Corpuscular Hemoglobin Concent 34 g/dL (31-37) Red Cell Distribution Width 13.7 % (11.5-14.5) Platelet Count 199 x10^3/uL (140-400) Neutrophils (%) (Auto) 45 % (31-73) Lymphocytes (%) (Auto) 29 % (24-48) Monocytes (%) (Auto) 16 % (0-9) Eosinophils (%) (Auto) 9 % (0-3) Basophils (%) (Auto) 2 % (0-3) Neutrophils # (Auto) 1.6 x10^3uL (1.8-7.7) Lymphocytes # (Auto) 1.0 x10^3/uL (1.0-4.8) Monocytes # (Auto) 0.6 x10^3/uL (0.0-1.1) Eosinophils # (Auto) 0.3 x10^3/uL (0.0-0.7) Basophils # (Auto) 0.1 x10^3/uL (0.0-0.2) Sodium Level 141 mmol/L (136-145) Potassium Level 3.8 mmol/L (3.5-5.1) Chloride Level 103 mmol/L (98-107) Carbon Dioxide Level 27 mmol/L (21-32) Anion Gap 11 (6-14) Blood Urea Nitrogen 8 mg/dL (8-26) Creatinine 0.9 mg/dL (0.7-1.3) Estimated GFR (Cockcroft-Gault) 118.3 Glucose Level 83 mg/dL (70-99) Calcium Level 8.9 mg/dL (8.5-10.1) Review of Systems Review of Systems no fever, chills, sob or chest pain Assessment and Plan Assessmemt and Plan Problems Medical Problems: (1) Cellulitis of right hand Status: Acute Problems: Comment Review of Relevant I have reviewed the following items nahomi (where applicable) has been applied. Labs Laboratory Tests Test 10/06/16 02:55 10/06/16 21:35 10/07/16 05:40 White Blood Count 5.4 x10^3/uL (4.0-11.0) 3.6 x10^3/uL (4.0-11.0) Red Blood Count 4.55 x10^6/uL (4.30-5.70) 4.66 x10^6/uL (4.30-5.70) Hemoglobin 13.2 g/dL (13.0-17.5) 13.6 g/dL (13.0-17.5) Hematocrit 40.6 % (39.0-53.0) 40.5 % (39.0-53.0) Mean Corpuscular Volume 89 fL (79-100) 87 fL (79-100) Mean Corpuscular Hemoglobin 29 pg (25-35) 29 pg (25-35) Mean Corpuscular Hemoglobin Concent 33 g/dL (31-37) 34 g/dL (31-37) Red Cell Distribution Width 14.0 % (11.5-14.5) 13.7 % (11.5-14.5) Platelet Count 178 x10^3/uL (140-400) 199 x10^3/uL (140-400) Neutrophils (%) (Auto) 58 % (31-73) 45 % (31-73) Lymphocytes (%) (Auto) 27 % (24-48) 29 % (24-48) Monocytes (%) (Auto) 9 % (0-9) 16 % (0-9) Eosinophils (%) (Auto) 6 % (0-3) 9 % (0-3) Basophils (%) (Auto) 0 % (0-3) 2 % (0-3) Neutrophils # (Auto) 3.1 x10^3uL (1.8-7.7) 1.6 x10^3uL (1.8-7.7) Lymphocytes # (Auto) 1.4 x10^3/uL (1.0-4.8) 1.0 x10^3/uL (1.0-4.8) Monocytes # (Auto) 0.5 x10^3/uL (0.0-1.1) 0.6 x10^3/uL (0.0-1.1) Eosinophils # (Auto) 0.3 x10^3/uL (0.0-0.7) 0.3 x10^3/uL (0.0-0.7) Basophils # (Auto) 0.0 x10^3/uL (0.0-0.2) 0.1 x10^3/uL (0.0-0.2) Sodium Level 140 mmol/L (136-145) 141 mmol/L (136-145) Potassium Level 3.9 mmol/L (3.5-5.1) 3.8 mmol/L (3.5-5.1) Chloride Level 105 mmol/L (98-107) 103 mmol/L (98-107) Carbon Dioxide Level 25 mmol/L (21-32) 27 mmol/L (21-32) Anion Gap 10 (6-14) 11 (6-14) Blood Urea Nitrogen 11 mg/dL (8-26) 8 mg/dL (8-26) Creatinine 0.9 mg/dL (0.7-1.3) 0.9 mg/dL (0.7-1.3) Estimated GFR (Cockcroft-Gault) 118.3 118.3 Glucose Level 79 mg/dL (70-99) 83 mg/dL (70-99) Calcium Level 8.5 mg/dL (8.5-10.1) 8.9 mg/dL (8.5-10.1) Vancomycin Level Trough 16.6 mcg/mL (10.0-20.0) Vancomycin Last Dose Date Vancomycin Last Dose Time Laboratory Tests Test 10/06/16 21:35 10/07/16 05:40 Vancomycin Level Trough 16.6 mcg/mL (10.0-20.0) Vancomycin Last Dose Date Vancomycin Last Dose Time White Blood Count 3.6 x10^3/uL (4.0-11.0) Red Blood Count 4.66 x10^6/uL (4.30-5.70) Hemoglobin 13.6 g/dL (13.0-17.5) Hematocrit 40.5 % (39.0-53.0) Mean Corpuscular Volume 87 fL (79-100) Mean Corpuscular Hemoglobin 29 pg (25-35) Mean Corpuscular Hemoglobin Concent 34 g/dL (31-37) Red Cell Distribution Width 13.7 % (11.5-14.5) Platelet Count 199 x10^3/uL (140-400) Neutrophils (%) (Auto) 45 % (31-73) Lymphocytes (%) (Auto) 29 % (24-48) Monocytes (%) (Auto) 16 % (0-9) Eosinophils (%) (Auto) 9 % (0-3) Basophils (%) (Auto) 2 % (0-3) Neutrophils # (Auto) 1.6 x10^3uL (1.8-7.7) Lymphocytes # (Auto) 1.0 x10^3/uL (1.0-4.8) Monocytes # (Auto) 0.6 x10^3/uL (0.0-1.1) Eosinophils # (Auto) 0.3 x10^3/uL (0.0-0.7) Basophils # (Auto) 0.1 x10^3/uL (0.0-0.2) Sodium Level 141 mmol/L (136-145) Potassium Level 3.8 mmol/L (3.5-5.1) Chloride Level 103 mmol/L (98-107) Carbon Dioxide Level 27 mmol/L (21-32) Anion Gap 11 (6-14) Blood Urea Nitrogen 8 mg/dL (8-26) Creatinine 0.9 mg/dL (0.7-1.3) Estimated GFR (Cockcroft-Gault) 118.3 Glucose Level 83 mg/dL (70-99) Calcium Level 8.9 mg/dL (8.5-10.1) Microbiology 10/05/16 Blood Culture - Preliminary, Resulted NO GROWTH AFTER 1 DAY 10/06/16 Gram Stain - Final, Complete Medications Current Medications Clindamycin Phosphate 50 ml @ 100 mls/hr Q8HRS IV Last administered on 14:04; Start 10/05/16 at 14:00; Stop 10/05/16 at 20:58; Status DC Acetaminophen/ Hydrocodone Bitart (Lortab 5/325) 2 tab PRN Q6HRS PRN PO pain Last administered on 10/05/16 15:47; Start 10/05/16 at 14:00; Stop 10/05/16 at 21:01; Status DC Ondansetron HCl (Zofran Odt) 4 mg PRN Q8HRS PRN PO nausea and vomiting; Start 10/05/16 at 14:00 Piperacillin Sod/ Tazobactam Sod 3.375 gm/Sodium Chloride 50 ml @ 100 mls/hr Q6HRS IV Last administered on 10/07/16 13:06; Start 10/06/16 at 00:00 Vancomycin HCl 1 gm/Sodium Chloride 250 ml @ 250 mls/hr Q12H IV ; Start at 21:00; Stop 10/05/16 at 21:03; Status DC Acetaminophen/ Hydrocodone Bitart (Lortab 5/325) 1 tab PRN Q4HRS PRN PO PAIN Last administered on 10/06/16 18:06; Start 10/05/16 at 21:00 Vancomycin HCl 2 gm/Sodium Chloride 500 ml @ 250 mls/hr 1X ONCE IV Last administered on 10/05/16 22:06; Start 10/05/16 at 22:00; Stop 10/05/16 at 23:59 ; Status DC Vancomycin HCl (Vanco Per Pharmacy) 1 each PRN DAILY PRN MC SEE COMMENTS Last administered on 10/07/16 13:40; Start 10/05/16 at 21:15 Vancomycin HCl 1.25 gm/Sodium Chloride 250 ml @ 167 mls/hr Q8H IV Last administered on 10/07/16 06:47; Start 10/06/16 at 06:00 Vancomycin HCl 1 each 1X ONCE MC Last administered on 10/06/16 21:30; Start 10/06/16 at 21:30; Stop 10/06/16 at 21:31; Status DC Vitals/I & O Vital Sign - Last 24 Hours 10/06/16 10/06/16 10/06/16 10/06/16 15:02 18:06 19:05 19:15 Temp 98.9 97.9 98.9 97.9 Pulse 61 53 Resp 18 20 18 B/P (MAP) 120/72 (88) 125/76 (92) Pulse Ox 100 100 100 O2 Delivery Room Air Room Air Room Air Room Air 10/06/16 10/06/16 10/07/16 10/07/16 20:45 23:18 03:29 07:00 Temp 97.9 97.9 98.8 97.9 97.9 98.8 Pulse 51 59 55 Resp 18 18 18 B/P (MAP) 126/70 (88) 12/77 (56) 115/67 (83) Pulse Ox 100 100 99 O2 Delivery Room Air Room Air Room Air Room Air 10/07/16 10/07/16 07:30 11:00 Temp 99.4 99.4 Pulse 63 Resp 18 B/P (MAP) 127/73 (91) Pulse Ox 99 O2 Delivery Room Air Room Air Intake and Output 10/06/16 10/06/16 10/07/16 15:00 23:00 07:00 Intake Total 120 ml 120 ml 910 ml Balance 120 ml 120 ml 910 ml MATTY ENRIQUEZ MD Oct 07, 2016 13:52
[2016-10-07] MEDS ORDERED: MORPHINE SULFATE 2 MG/ML DISP.SYRIN. IV PRN (14:00)
[2016-10-07] MEDS ORDERED: ACETAMINOPHEN 325 MG TABLET. PO PRN (14:00)
[2016-10-07] MEDS ORDERED: ONDANSETRON PF 4 MG/2 ML VIAL. IV PRN (14:00)
[2016-10-07] MEDS ORDERED: DOCUSATE SODIUM 100 MG CAPSULE. PO PRN (14:00)
[2016-10-07] MEDS ORDERED: hydrALAZINE 20 MG/ML VIAL. IVP PRN (14:00)
[2016-10-07] MEDS ORDERED: traMADol 50 MG TABLET PO PRN (14:00)
--- NOTE | 2016-10-07 14:39 | PDOC3 ---
Discharge Summary [facility] Date of Admission: Oct 05, 2016 Discharge Date: Oct 07, 2016 Admitting Diagnosis 1. Cellulitis of R hand 2. s/p I&D: at ER with bactrium 3. GPC+ on stain on R hand wound culture 4. Hyperkalemia 5. Elevated AST Problems: Final Diagnosis CONSULTS ID Brief Hospital Course Mr. Wright is a 31 old [M, comes for right hand pain. He was in last week for same thing, in ER, got I AND D, without packing and dced home with bactrium. comes for more pain, cx = gram + cocci, sen still pending. pt need to go to court today, clinically ok, dc with cipro and doxy x10ds, cont local wound packing, fu with dr. Olea next week. dc time 35min Physical Exam right wrist lateral aspect has dressing packing and some blood ozzing on the dressing General: Alert, Oriented X3, Cooperative, No acute distress Heart: Regular rate, No murmurs Lungs: Clear Abdomen: Normal bowel sounds, Soft, No tenderness Extremities: No clubbing, No cyanosis, No edema Skin: No rashes, No breakdown, No significant lesion Patient History: FHx: hypertension 32 FATHER 31 MOTHER Problems: Disposition home CONDITION AT DISCHARGE: Improved Diet regular Follow Up pcp and id in 2 weeks MATTY ENRIQUEZ MD Oct 07, 2016 14:39
[2016-10-07] MEDS ORDERED: HYDR-2758 PO (14:41)
[2016-10-07] MEDS ORDERED: DOXY100T PO (14:41)
[2016-10-07] MEDS ORDERED: CIPR250T30 PO (14:41)
[2016-10-07] MEDS ORDERED: CIPROFLOXACIN HCL 250 MG TABLET. PO SCH (21:00)
[2016-10-07] MEDS ORDERED: DOXYCYCLINE HYCLATE 100 MG TABLET PO SCH (21:00)
== END 2016-10-07 15:00 | disposition home or self-care (01) | DRG 603 ==
LOC: ER 12:20 → 4 NORTH 13:40
PROVIDERS: ADMIT Internal Medicine; ATTEND Internal Medicine
DX: L03.113 Cellulitis of right upper limb (principal); E87.5 Hyperkalemia; J45.909 Unspecified asthma, uncomplicated; L97.529 Non-pressure chronic ulcer of other part of left foot with unspecified severity; M25.531 Pain in right wrist; L30.9 Dermatitis, unspecified; Z82.49 Family history of ischemic heart disease and other diseases of the circulatory system; Z89.421 Acquired absence of other right toe(s)
CPT/HCPCS: 36415; 73130; 80048; 80053; 80202; 85027; 87040; 87071; 87075; 87186; 87205; 96365; J2543; J3370; J3490; J7040; J7050; 99285-25; J7030

== ENCOUNTER → 2016-10-09 | Outpatient (CLI) | payer SELFPAY ==
[2016-10-07 11:00] VITALS: BP 127/73
[~2016-10-09] MED LIST: CIPR250T30 PO; DOXY100T PO; HYDR-2758 PO
== END | disposition home or self-care (01) ==
LOC: PMGWOUND 08:11
PROVIDERS: ATTEND Preventive Medicine Undersea and Hyperbaric Medicine
DX: L02.511 Cutaneous abscess of right hand (principal); J45.909 Unspecified asthma, uncomplicated; F17.210 Nicotine dependence, cigarettes, uncomplicated; Z89.421 Acquired absence of other right toe(s)
CPT/HCPCS: 11042

== ENCOUNTER → 2016-10-16 | Outpatient (CLI) | payer SELFPAY ==
[2016-10-07 11:00] VITALS: BP 127/73
== END | disposition home or self-care (01) ==
LOC: PMGWOUND 08:57
PROVIDERS: ATTEND Preventive Medicine Undersea and Hyperbaric Medicine
DX: L02.511 Cutaneous abscess of right hand (principal); J45.909 Unspecified asthma, uncomplicated; F17.210 Nicotine dependence, cigarettes, uncomplicated; Z89.421 Acquired absence of other right toe(s)
CPT/HCPCS: 99214

== ENCOUNTER 2016-12-10 13:20 | Emergency (ER) | payer SELFPAY ==
[~2016-12-10] VITALS: Ht 188 cm; Wt 77.1 kg
[2016-12-10 13:34] VITALS: BP 123/63
[2016-12-10] MEDS ORDERED: HYDR-971 PO (13:51)
[2016-12-10] MEDS ORDERED: DOXY100C2 PO (13:51)
--- NOTE | 2016-12-10 13:52 | PHYS DOC ---
Past Medical History Past Medical History: Asthma Past Surgical History: Other Additional Past Surgical Histo: right second toe amputation Alcohol Use: None Drug Use: None Adult General Chief Complaint Chief Complaint: ABSCESS HPI HPI Patient is a 31 year old male presents to the emergency department stating he has an area on his left hip that is red warm swollen with a streak that goes down into his thigh. Patient states that it has been there for approximately a few days. He denies significant drainage however he does state there was a small amount that he noted. He denies any numbness or tingling down to his lower extremity. He is unsure when his last tetanus shot was however he was seen here on 10/05/16 in which she stated was up-to-date at that time. Patient denies fever, chills or any nausea vomiting. Review of Systems Review of Systems Constitutional: Denies fever or chills [] Eyes: Denies change in visual acuity, redness, or eye pain [] HENT: Denies nasal congestion or sore throat [] Respiratory: Denies cough or shortness of breath [] Cardiovascular: No additional information not addressed in HPI [] GI: Denies abdominal pain, nausea, vomiting, bloody stools or diarrhea [] : Denies dysuria or hematuria [] Musculoskeletal: Denies back pain or joint pain [] Integument: Denies rash or skin lesions. Abscess left upper thigh Neurologic: Denies headache, focal weakness or sensory changes [] Endocrine: Denies polyuria or polydipsia [] Allergies Allergies Allergies Coded Allergies Type Severity Reaction Last Updated Verified No Known Drug Allergies 11/09/14 No Physical Exam Physical Exam Constitutional: Well developed, well nourished, no acute distress, non-toxic appearance. [] HENT: Normocephalic, atraumatic, bilateral external ears normal, oropharynx moist, no oral exudates, nose normal. [] Eyes: PERRLA, EOMI, conjunctiva normal, no discharge. [] Neck: Normal range of motion, no tenderness, supple, no stridor. [] Cardiovascular:[place] warm and dry [] Lungs & Thorax: no respiratory distress Skin: Warm, dry, no erythema, no rash. Patient with fidel area to the left upper thigh that is red warm and swollen with streaks noted down the leg. No drainage, no fluctuance note. Extremities: No tenderness, no cyanosis, no clubbing, ROM intact, no edema. [] Neurologic: Alert and oriented X 3, normal motor function, normal sensory function, no focal deficits noted. [] Psychologic: Affect normal, judgement normal, mood normal. [] Current Patient Data Vital Signs Vital Signs Date Time Temp Pulse Resp B/P (MAP) Pulse Ox O2 Delivery O2 Flow Rate FiO2 12/10/16 13:34 98.2 89 18 97 Room Air 98.2 EKG EKG [] Radiology/Procedures Radiology/Procedures [] Course & Med Decision Making Course & Med Decision Making Pertinent Labs and Imaging studies reviewed. (See chart for details) Patient will be discharged home with doxycycline. He'll be updated with a tetanus immunization here in the emergency department. He'll be instructed to use warm moist packs to the area 4-5 times a day. His also recommended to follow -up with primary care physician return back here in 3-5 days if the area does not start improving. Recommended Tylenol or ibuprofen for pain and discomfort. Also recommended hydrocodone for severe pain and discomfort. He was instructed this medication will cause drowsiness do not take any be alert and oriented. Patient agrees with discharge instructions treatment regimens and follow-up recommendations. Signs symptoms return back to emergency department provided. All questions and concerns answered at patient's bedside. [] Dragon Disclaimer Dragon Disclaimer This electronic medical record was generated, in whole or in part, using a voice recognition dictation system. Departure Departure Impression: Primary Impression: Cellulitis and abscess of leg Disposition: 01 HOME, SELF-CARE Condition: STABLE Referrals: NO PCP (PCP) Patient Instructions: Cellulitis, [id number] Additional Instructions: Activity as tolerated. Tylenol or ibuprofen for pain and discomfort. [place] for severe pain and discomfort. This medication will cause drowsiness do not take any be alert and oriented. Antibiotics as prescribed. Warm moist packs to the area 4-5 times a day. Follow-up the primary care physician or return back to emergency department 3-5 days if the areas does not appear to be getting better. Return back to emergency prior signs symptoms of become worse. Scripts Hydrocodone/Apap 5-325 (NORCO 5-325 TABLET) 1 Each Tablet 1 TAB PO PRN Q6HRS Y for PAIN, #10 TAB 0 Refills Prov: MOHSENJACNAS Tobar APRN 12/10/16 Doxycycline Hyclate (DOXYCYCLINE HYCLATE) 100 Mg Capsule 1 CAP PO BID, #20 CAP Prov: JAC CONNOLLY APRN 12/10/16 JAC CONNOLLY APRN Dec 10, 2016 13:52
[2016-12-10] MEDS ORDERED: DIPHTH,PERTUSS(ACELL),TET TOX 0.5 ML DISP.SYRIN. VAX IM ONE (14:15)
== END 2016-12-10 14:10 | disposition home or self-care (01) ==
LOC: ER 13:20
DX: L03.116 Cellulitis of left lower limb (principal); L02.416 Cutaneous abscess of left lower limb; J45.909 Unspecified asthma, uncomplicated
CPT/HCPCS: 90471; 90715; 99283-25

== ENCOUNTER 2021-06-23 06:59 | Emergency (ER) | payer MEDICAID ==
[~2021-06-23] VITALS: Ht 188 cm; Wt 79.0 kg
[~2021-06-23 06:59] MED LIST changes: +DOXY100C3 PO; -HYDR-2758 PO; +HYDR-2761 PO; +HYDR-3164 PO; +ORPH100T PO
[2021-06-23] MEDS ORDERED: IV NORMAL SALINE 1000ML BAG 1,000 ML IV SCH (07:30)
[2021-06-23] MEDS ORDERED: KETOROLAC 30 MG/ML VIAL. IVP ONE (07:30)
--- NOTE | 2021-06-23 07:43 | PHYS DOC ---
Past Medical History Past Medical History: Asthma Additional Past Medical Histor: CHRONIC BADOMINAL PAIN Past Surgical History: Other Additional Past Surgical Histo: right second toe amputation Smoking Status: Former Smoker Alcohol Use: None Drug Use: None Social History Narrative: [facility] General Adult EDM: Chief Complaint: ABDOMINAL PAIN HPI: HPI: Patient is a 35 year old male presents to the ER with diffuse abdominal pain that has been ongoing for the last 4 years. Patient states he comes to the ER today after having worsening pain. Patient states it is worse in the morning states it feels like cramping. Denies any rectal bleeding tenesmus or flatulence. Patient denies any fevers or chills denies any back pain denies any dysuria. Review of Systems: Review of Systems: Constitutional: Denies fever or chills. Eyes: Denies change in visual acuity. HENT: Denies nasal congestion or sore throat. Respiratory: Denies cough or shortness of breath. Cardiovascular: Denies chest pain or edema. GI: Diffuse abdominal pain no rectal pain no rectal bleeding no vomiting or nausea. : Denies dysuria. Musculoskeletal: Denies back pain or joint pain. Integument: Denies rash. Neurologic: Denies headache, focal weakness or sensory changes. [ Endocrine: Denies polyuria or polydipsia. Lymphatic: Denies swollen glands. Psychiatric: Denies depression or anxiety. Heart Score: C/O Chest Pain: No Risk Factors: Risk Factors: DM, Current or recent (<one month) smoker, HTN, HLP, family history of CAD, obesity. Risk Scores: Score 0 - 3: 2.5% MACE over next 6 weeks - Discharge Home Score 4 - 6: 20.3% MACE over next 6 weeks - Admit for Clinical Observation Score 7 - 10: 72.7% MACE over next 6 weeks - Early Invasive Strategies Current Medications: Current Medications Medications (Trade) Dose Ordered Sig/Awais Start Time Stop Time Status Last Admin Dose Admin Ketorolac Tromethamine (Toradol 30mg Vial) 15 mg 1X ONCE 06/23/21 07:30 06/23/21 07:32 DC Sodium Chloride 1,000 ml @ 1,000 mls/hr Q1H 06/23/21 07:30 06/23/21 08:29 Allergies: Allergies: Allergies Coded Allergies Type Severity Reaction Last Updated Verified No Known Drug Allergies 11/09/14 No Physical Exam: PE: Constitutional: Well developed, well nourished, no acute distress, non-toxic appearance. HENT: Normocephalic, atraumatic, bilateral external ears normal, oropharynx moist, no oral exudates, nose normal. Eyes: PERRLA, EOMI, conjunctiva normal, no discharge. Neck: Normal range of motion, no tenderness, supple, no stridor. Cardiovascular:Heart rate regular rhythm, no murmur Lungs & Thorax: Bilateral breath sounds clear to auscultation Abdomen: Abdomen is soft with no guarding. No rebound tendernss no diffuse tenderness. No pulsatile mass Skin: Warm, dry, no erythema, no rash. Back: No tenderness, no CVA tenderness. Extremities: No tenderness, no cyanosis, no clubbing, ROM intact, no edema. Neurologic: Alert and oriented X 3, normal motor function, normal sensory function, no focal deficits noted. Psychologic: Affect normal, judgement normal, mood normal. Current Patient Data: Labs: Laboratory Tests Test 06/23/21 07:13 06/23/21 07:15 06/23/21 07:53 White Blood Count 4.3 x10^3/uL Red Blood Count 4.81 x10^6/uL Hemoglobin 13.8 g/dL Hematocrit 42.3 % Mean Corpuscular Volume 88 fL Mean Corpuscular Hemoglobin 29 pg Mean Corpuscular Hemoglobin Concent 33 g/dL Red Cell Distribution Width 13.9 % Platelet Count 234 x10^3/uL Neutrophils (%) (Auto) 42 % Lymphocytes (%) (Auto) 35 % Monocytes (%) (Auto) 9 % Eosinophils (%) (Auto) 14 % Basophils (%) (Auto) 1 % Neutrophils # (Auto) 1.8 x10^3/uL Lymphocytes # (Auto) 1.5 x10^3/uL Monocytes # (Auto) 0.4 x10^3/uL Eosinophils # (Auto) 0.6 x10^3/uL Basophils # (Auto) 0.0 x10^3/uL Platelet Estimate Pending Urine Collection Type Unknown Urine Color (Auto) Colorless Urine Turbidity Clear Urine pH (Auto) 7.5 Urine Specific [place] 1.009 Urine Protein (Auto) Negative mg/dL Urine Glucose (Auto)(UA) Negative mg/dL Urine Ketones (Auto) Negative mg/dL Urine Blood (Auto) Negative Urine Nitrite (Auto) Negative Urine Bilirubin (Auto) Negative Urine Urobilinogen (Auto) Normal mg/dL Urine Leukocyte Esterase (Auto) Negative Urine RBC 0 /HPF Urine WBC Occ /HPF Urine Squamous Epithelial Cells Few /LPF Urine Bacteria 0 /HPF Urine Mucus Slight /LPF Sodium Level 138 mmol/L Potassium Level 3.8 mmol/L Chloride Level 106 mmol/L Carbon Dioxide Level 26 mmol/L Anion Gap 6 Blood Urea Nitrogen 12 mg/dL Creatinine 0.7 mg/dL Estimated GFR (Cockcroft-Gault) 154.4 BUN/Creatinine Ratio 17 Glucose Level 94 mg/dL Calcium Level 8.6 mg/dL Total Bilirubin 0.3 mg/dL Aspartate Amino Transf (AST/SGOT) 12 U/L Alanine Aminotransferase (ALT/SGPT) 18 U/L Alkaline Phosphatase 39 U/L Total Protein 7.9 g/dL Albumin 3.8 g/dL Albumin/Globulin Ratio 0.9 Lipase 169 U/L Current Medications Medications (Trade) Dose Ordered Sig/Awais Route PRN Reason Start Time Stop Time Status Last Admin Dose Admin Sodium Chloride 1,000 ml @ 1,000 mls/hr Q1H IV 06/23/21 07:30 06/23/21 08:29 DC 06/23/21 07:46 Ketorolac Tromethamine (Toradol 30mg Vial) 15 mg 1X ONCE IVP 06/23/21 07:30 06/23/21 07:32 DC 06/23/21 07:46 Iohexol (Omnipaque 300 Mg/ml) 75 ml 1X ONCE IV 06/23/21 08:15 06/23/21 08:16 DC 06/23/21 08:30 Info (CONTRAST GIVEN -- Rx MONITORING) 1 each PRN DAILY PRN MC SEE COMMENTS 06/23/21 08:30 06/25/21 08:29 Vital Signs: Vital Signs Date Time Temp Pulse Resp B/P (MAP) Pulse Ox O2 Delivery O2 Flow Rate FiO2 06/23/21 07:04 97.5 58 16 127/79 (95) 100 Room Air 97.5 EKG: EKG: [] Radiology/Procedures: Radiology/Procedures: IMPRESSION: 1. Nonobstructing calculus in inferior pole the left kidney measuring 3 mm. No hydronephrosis. 2. No bowel obstruction or inflammation. 3. 3 mm hypodensity within the right hepatic lobe (series 2, image 18) is too small to characterize and statistically favored represent benign etiology such as a simple cyst or hemangioma in the absence of underlying malignancy. Liver is homogeneous in enhancement Course & Med Decision Making: Course & Med Decision Making Pertinent Labs and Imaging studies reviewed. (See chart for details) Patient patient's findings on lab and CT were extensively reviewed with the patient. Patient has no acute findings at this time is aware of the kidney and liver findings. Patient will follow up with GI in the outpatient setting. Questions and concerns were addressed Anna Disclaimer: Anna Disclaimer: This electronic medical record was generated, in whole or in part, using a voice recognition dictation system. Departure Departure Referrals: NO PCP (PCP) SEBAS IVEY DO Jun 23, 2021 07:43
[2021-06-23 07:59] LABS: BASO % 1 % (0-3); EOS # 0.6 x10^3/uL (0.0-0.7); EOS % 14 % (0-3); HEMATOCRIT 42.3 % (39.0-53.0); HEMOGLOBIN 13.8 g/dL (13.0-17.5); LYMPH # 1.5 x10^3/uL (1.0-4.8); LYMPH % 35 % (24-48); MEAN CORPUSCULAR HEMOGLOBIN 29 pg (25-35); MEAN CORPUSCULAR HGB CONC 33 g/dL (31-37); MEAN CORPUSCULAR VOLUME 88 fL (79-100); MONO # 0.4 x10^3/uL (0.0-1.1); MONO % 9 % (0-9); NEUT # 1.8 x10^3/uL (1.8-7.7); NEUT % 42 % (31-73); PLATELET COUNT 234 x10^3/uL (140-400); RED BLOOD COUNT 4.81 x10^6/uL (4.30-5.70); RED CELL DISTRIBUTION WIDTH 13.9 % (11.5-14.5); WHITE BLOOD COUNT 4.3 x10^3/uL (4.0-11.0)
[2021-06-23 08:12] LABS: CALCIUM 8.6 mg/dL (8.5-10.1); CREATININE 0.7 mg/dL (0.7-1.3); GFR 154.4; POTASSIUM 3.8 mmol/L (3.5-5.1)
[2021-06-23] MEDS ORDERED: IOHEXOL 300 MG/ML 100ML VIAL. IV ONE (08:15)
[2021-06-23 08:17] LABS: ALBUMIN 3.8 g/dL (3.4-5.0); ALBUMIN/GLOBULIN RATIO 0.9 (1.0-1.7); TOTAL BILIRUBIN 0.3 mg/dL (0.2-1.0); TOTAL PROTEIN 7.9 g/dL (6.4-8.2)
[2021-06-23] MEDS ORDERED: CONTRAST GIVEN. MC PRN (08:30)
[2021-06-23 08:37] LABS: BACTERIA,URINE 0 /HPF (0-FEW); RBC,URINE 0 /HPF (0-2); WBC,URINE OCC /HPF (0-4)
--- NOTE | 2021-06-23 09:00 | RAD ---
PQRS Compliance Statement: One or more of the following individualized dose reduction techniques were utilized for this examinat ion: 1. Automated exposure control 2. Adjustment of the mA and/or kV according to patient size 3. Use of iterative reconstruction technique CT abdomen/pelvis with contrast 06/23/2021 8:14 AM INDICATION: Abdominal pain COMPARISON: None available TECHNIQUE: Multiple axial CT images of the abdomen and pelvis were obtained after the intravenous adm inistration of 75 mL Omnipaque 300. Coronal and sagittal reformats are provided. FINDINGS: Visualized portions of the lung bases are clear. Heart size is within normal limits. No suspicious hepatic masses are identified. 3 mm hypodensity within the right hepatic lobe (series 2 , image 18) is too small to characterize and statistically favored represent benign etiology such as a simple cyst or hemangioma in the absence of underlying malignancy. Liver is homogeneous in enhancem ent. Spleen, bilateral adrenal glands, and pancreas are normal in appearance. Gallbladder is present without adjacent inflammatory changes. Main pancreatic duct measures up to 1 mm. The abdominal aorta is normal in course and caliber. There are no pathologically enlarged lymph nodes in the abdomen and pelvis. There is no abdominal free fluid. There is no free intraperitoneal air. The kidneys enhance symmetrically. There is no suspicious renal mass. There is no hydronephrosis. The re is a 3 mm nonobstructing calculus in interpolar left kidney. Urinary bladder is within normal limi ts given degree of distention. Prostate and seminal vesicles are normal. Small and large bowel are normal in caliber. There is no evidence for bowel obstruction. There are no pericolonic inflammatory changes. A normal, nondilated appendix is visualized without adjacent infla mmatory changes. There is levoconvex curvature of the lumbar spine. No acute osseous abnormalities identified. IMPRESSION: 1. Nonobstructing calculus in inferior pole the left kidney measuring 3 mm. No hydronephrosis. 2. No bowel obstruction or inflammation. 3. 3 mm hypodensity within the right hepatic lobe (series 2, image 18) is too small to characterize a nd statistically favored represent benign etiology such as a simple cyst or hemangioma in the absence of underlying malignancy. Liver is homogeneous in enhancement Electronically signed by: Lucero Escalante MD (06/23/2021 8:57 AM) [id number]
[2021-06-23 09:28] VITALS: BP 129/76
[2021-06-23 09:45] LABS: PLT ESTIMATE ADEQUATE (ADEQUATE)
== END 2021-06-23 09:34 | disposition home or self-care (01) ==
LOC: ER 06:59
DX: N20.0 Calculus of kidney (principal); J45.909 Unspecified asthma, uncomplicated; Z87.891 Personal history of nicotine dependence
CPT/HCPCS: 36415; 74177; 80053; 81001; 83690; 85025; 96361; 96374; 99285; J1885; J7030; Q9967